=== PATIENT | female | born 1955 | race Caucasian/White ===

== ENCOUNTER 2017-02-16 10:25 | Day surgery (SDC) | payer OTHER ==
[2017-02-11 14:24] VITALS: BMI 21.9
[2017-02-16 11:16] VITALS: RESP 18
[2017-02-16 12:56] VITALS: BP 131/62; PULSE 84; TEMP 97.6; O2SAT 100
--- NOTE | 2017-02-16 14:42 | US ---
PROCEDURE: Date of procedure: 02/16/2017 Procedure: Ultrasound-guided biopsy of submandibular lymph node, CPT 64521 Ultrasound guidance for biopsy, [id number] HISTORY: Enlarged cervical lymph node TECHNIQUE: Following informed consent and procedure time-out, limited ultrasound of the submandibular region showed an enlarged 1.9 centimeter hypoechoic lymph node. After the patient neck was prepped and draped in the usual sterile fashion and the skin anesthetized with lidocaine, ultrasound guided FNA was performed. A 25 g needle was advanced under US guidance into the lymph node. A total of 6 passes were made. Specimen were placed in RPMI for flow cytometry and sent for routine histology. A post biopsy ultrasound showed no hematoma IMPRESSION: Ultrasound-guided FNA of submandibular lymph node.
== END 2017-02-16 12:35 | disposition home or self-care (01) ==
LOC: C.SPRAD 10:25
PROVIDERS: ATTEND Radiology Vascular & Interventional Radiology
DX: R59.0 Localized enlarged lymph nodes (principal)

== ENCOUNTER 2017-03-19 11:00 | Day surgery (SDC) | payer OTHER ==
[2017-03-16 07:59] VITALS: BMI 21.4
--- NOTE | 2017-03-20 11:08 | US ---
PROCEDURE: Date of procedure: 03/19/2019 Procedure: Ultrasound-guided FNA of submandibular lymph node, HISTORY: Enlarged submental lymph node TECHNIQUE: Following informed consent and procedure time-out, limited ultrasound patient's neck demonstrates a midline hypoechoic nodule measuring 1.9 by 1.2 x 1 centimeter. The nodule is in the submental space. After the patient neck was prepped and draped in the usual sterile fashion and the skin anesthetized with lidocaine, ultrasound guided FNA was performed. Four passes were made into the nodule with 25 gauge needle. The specimen was for flow cytometry. A post biopsy ultrasound showed no hematoma IMPRESSION: Midline submental mass measuring 1.9 x 1.2 centimeters. Ultrasound-guided FNA performed and specimen was sent for flow cytometry.
== END 2017-03-19 14:00 | disposition home or self-care (01) ==
LOC: C.SPRAD 11:00
PROVIDERS: ATTEND Otolaryngology
DX: R22.1 Localized swelling, mass and lump, neck (principal)